=== PATIENT | female | born 1970 | race Caucasian/White ===

== ENCOUNTER 2021-07-27 21:54 | Emergency (ER) | payer OTHER, BC ==
[2021-07-27] MEDS ORDERED: Diphtheria,Pertussis(Acell),Tetanus Vaccine 0.5 ML Syringe IM ONE (22:13)
[2021-07-27] MEDS ORDERED: Bacitracin Oint 1 GM U/D Packet ONE (23:00)
[2021-07-27] MEDS ORDERED: Bacitracin Oint 1 GM U/D Packet TOP STA (23:07)
== END 2021-07-27 23:22 | disposition home or self-care (01) ==
LOC: MW.ED 21:54
DX: S50.01XA Contusion of right elbow, initial encounter (principal); S60.222A Contusion of left hand, initial encounter; Z23 Encounter for immunization; V29.9XXA Motorcycle rider (driver) (passenger) injured in unspecified traffic accident, initial encounter
CPT/HCPCS: 73080-26-RT; 73080-RT; 73130-26-LT; 73130-LT; 90471; 90715; 99282; 99284-25